=== PATIENT | male | born 1990 | race Hispanic/Latino ===

== ENCOUNTER 2017-10-10 12:17 | Emergency (ER) | payer OTHER ==
[2017-10-10 12:36] VITALS: RESP 18
[2017-10-10] MEDS ORDERED: Sodium Chloride 0.9% 1,000 ML IV ONE (12:45)
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
[2017-10-10] MEDS ORDERED: Sodium Chloride 0.9% 1,000 ML ONE (13:10)
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
[2017-10-10 14:48] VITALS: BP 142/87; PULSE 78; TEMP 98.1; O2SAT 99
--- NOTE | 2017-10-10 15:32 | RAD ---
Cervical spine three views History: Neck pain. Comparison: None available. Findings: Straightening of the normal cervical lordosis. Cervical spine is visualized from C1 through C6. The C7 vertebral body is partially imaged. No significant prevertebral soft tissue swelling. No evidence for acute displaced fracture. Dens is grossly preserved. Impression: Straightening of the normal cervical lordosis. Cervical spine is visualized from C1 through C6. The C7 vertebral body is partially imaged. No significant prevertebral soft tissue swelling. No evidence for acute displaced fracture. If pain persists, consider MRI.
--- NOTE | 2017-10-10 15:45 | RAD ---
Right knee three views History: Knee pain. Comparison: None available. Findings: No evidence for acute displaced fracture or dislocation. Small suprapatellar joint effusion. Impression: Small suprapatellar joint effusion. If pain persists, consider MRI.
== END 2017-10-10 14:48 | disposition home or self-care (01) ==
LOC: C.ER 12:17
DX: S13.4XXA Sprain of ligaments of cervical spine, initial encounter (principal); S33.5XXA Sprain of ligaments of lumbar spine, initial encounter; V43.52XA Car driver injured in collision with other type car in traffic accident, initial encounter; Y92.410 Unspecified street and highway as the place of occurrence of the external cause
CPT/HCPCS: 72040; 73562; 74176; 96360; 99283; J7040